=== PATIENT | female | born 1955 | race Asian ===

== ENCOUNTER 2024-02-20 15:32 | Outpatient (CLI) | payer MEDICARE | END 2024-02-20 15:33 | disposition home or self-care (01) | LOC: BICRAD 15:32 | PROVIDERS: ATTEND Anesthesiology | DX: M51.16 Intervertebral disc disorders with radiculopathy, lumbar region (principal); M43.16 Spondylolisthesis, lumbar region; M47.817 Spondylosis without myelopathy or radiculopathy, lumbosacral region; G95.89 Other specified diseases of spinal cord | CPT/HCPCS: 72110 ==